=== PATIENT | male | born 1980 | race Hispanic/Latino ===

== ENCOUNTER 2020-12-24 12:48 | Emergency (ER) | payer BC, OTHER ==
--- OUTSIDE RECORDS SUMMARY | 2020-12-24 12:51 | XMS REPORT | Continuity of Care Document ---
:[address] [facility] t Address [facility] [place] [address] Care Team Providers Name Role Phone Lab, Fam Pob I Attending Clinician Unavailable Doctor Unassigned, Name Attending Clinician Unavailable Problems This patient has no known problems. Allergies, Adverse Reactions, Alerts This patient has no known allergies or adverse reactions. Medications This patient has no known medications. Procedures This patient has no known procedures. Encounters Start End Encounter Admission Attending Care Care Encounter Source Date/Time Date/Time Type Type Clinicians Facility Department ID 2020-09-27 2020-09-27 Laboratory Lab, [facility] [id number] 14:00:00 14:20:00 Only Fam Pob I Health [id number] [place] [id number] Professisela [id number] [address] 2020-09-27 2020-09-27 Orders Doctor ANTONIO [id number] 00:00:00 00:00:00 Only UnassignedRUBEN [id number] [place] [facility] [id number] Results This patient has no known results.
[2020-12-24 13:27] LABS: Absolute Lymphocytes (CBC) 1.2 K/uL (0.7-4.9); Basophils % 0.3 % (0-1.3); Lymphocytes % 14.2 % (15.3-44.8); MPV 8.1 fL (7.6-11.3); RBC Red Blood Cell Count 5.17 M/uL (4.33-5.43)
[2020-12-24 13:40] LABS: Albumin 3.7 g/dL (3.4-5.0); Bilirubin Direct 0.1 mg/dL (0-0.2); Bilirubin Total 0.6 mg/dL (0.2-1.0); Potassium 3.9 mmol/L (3.5-5.1); Protein, Total 6.4 g/dL (6.4-8.2)
[2020-12-24] MEDS ORDERED: ACETAMINOPHEN 500 MG TAB ONE (13:56)
[2020-12-24] MEDS ORDERED: NA CHLORIDE 0.9% 1,000 ML ONE (13:56)
[2020-12-24] MEDS ORDERED: D50W 25 GM/50 ML SYRINGE IV ONE (13:56)
[2020-12-24] MEDS ORDERED: ONDANSETRON 4 MG/2 ML VIAL ONE ×2 (14:05→15:38)
[2020-12-24] MEDS ORDERED: NA CHLORIDE 0.9% 250 ML ONE (16:13)
[2020-12-24] MEDS ORDERED: METOCLOPRAMIDE 10 MG/2mL INJ ONE (16:13)
[2020-12-24 17:14] LABS: Urine Blood Negative (Negative); Urine Glucose Trace (Negative); Urine Protein 1+ (Negative); Urine pH 7.5 (5.0-7.0)
[2020-12-24 17:16] LABS: Blood Gas Oxyhemoglobin 92.1 % (94-97); Blood O2 Saturation 92.7 % (92-98.5)
--- NOTE | 2020-12-24 17:44 | RAD REPORT ---
EXAM DESCRIPTION: CT - Head Brain Wo Cont - 12/24/2020 5:29 pm CLINICAL HISTORY: Headache COMPARISON: 2013 TECHNIQUE: Computed axial tomography of the head was obtained. IV contrast was not requested. All CT scans are performed using dose optimization technique as appropriate and may include automated exposure control or mA/KV adjustment according to patient size. FINDINGS: An intracranial bleed is not seen . The ventricles are normal in caliber. No extra-axial fluid collection is noted. Fluid within the sinuses/ mastoids is not seen. IMPRESSION: No acute intracranial abnormality is seen. If patient's symptoms persist MRI of the bra in would be recommended.
[2020-12-24 18:01] LABS: Barbiturates NEGATIVE (NEGATIVE); Benzodiazepines NEGATIVE (NEGATIVE); Cocaine NEGATIVE (NEGATIVE); METHAMPHETAM NEGATIVE (NEGATIVE); Methadone NEGATIVE (NEGATIVE); Opiates POSITIVE (NEGATIVE); Phencyclidine NEGATIVE (NEGATIVE); THC Cannibis NEGATIVE (NEGATIVE)
--- NOTE | 2020-12-24 18:47 | RAD REPORT ---
EXAM DESCRIPTION: CTHead angio12/24/2020 6:32 pm CLINICAL HISTORY: Headache COMPARISON: None TECHNIQUE: CT angiogram of the head was obtained. 3D MIPS reconstruction performed. All CT scans are performed using dose optimization technique as appropriate and may include automated exposure control or mA/KV adjustment according to patient size. FINDINGS: The basilar, internal carotid, anterior cerebral, middle cerebral and posterior cerebral a rteries are normal caliber. An aneurysm is not seen. A significant stenosis is not noted. IMPRESSION: Unremarkable CT angiogram head.
[2020-12-24] MEDS ORDERED: KETOROLAC 30 MG/ML INJ ONE (18:50)
[2020-12-24] MEDS ORDERED: dexAMETHasone 10 MG/ML VIAL ONE (18:50)
--- NOTE | 2020-12-24 20:25 | EDPHYS ---
Physician Documentation [facility] Name: Michael Fischer Age: 40 yrs Sex: Male : 1980 Arrival Date: 12/24/2020 Time: 12:52 Bed 2 Private MD: ED Physician HPI: 12/24 13:44 This 40 yrs old Male presents to ER via EMS with complaints of Low Blood Sugar.m 13:44 The patient or guardian reports hypoglycemia. Associated signs and symptoms: Pertinent m negatives:. 13:48 Current symptoms: In the emergency department the patient's symptoms have improved. The [facility] patient has experienced similar episodes in the past. This is a 40 year old male with a history of DM that presents to the ED with complaints of confusion, headache. Patient was administered D10 in route. Currently complains of headache. Mother states the patient did not take his BP medication. . Historical: - Allergies: 12:54 No Known Drug Allergies; sv - PMHx: 12:54 Diabetes - IDDM; sv - Immunization history:: Adult Immunizations. - Social history:: Smoking status: . ROS: 13:48 Constitutional: Negative for fever, chills, and weight loss, Cardiovascular: Negative jmm for chest pain, palpitations, and edema, Respiratory: Negative for shortness of breath, cough, wheezing, and pleuritic chest pain. 13:48 Neuro: Positive for altered mental status, headache. 13:48 All other systems are negative. Exam: 13:48 Constitutional: This is a well developed, well nourished patient who is awake, alert, jmm and in no acute distress. Head/Face: atraumatic. Eyes: EOMI, no conjunctival erythema appreciated ENT: Moist Mucus Membranes Neck: Trachea midline, Supple Chest/axilla: Normal chest wall appearance and motion. Cardiovascular: Regular rate and rhythm. No edema appreciated Respiratory: Normal respirations, no respiratory distress appreciated Abdomen/GI: Non distended, soft Back: Normal ROM Skin: General appearance color normal MS/ Extremity: Moves all extremities, no obvious deformities appreciated, no edema noted to the lower extremities Neuro: Awake and alert, normal gait Psych: Behavior is normal, Mood is normal, Patient is cooperative and pleasant Vital Signs: 12:46 BP 151 / 108; Pulse 64; Resp 19; Temp 97.4; Pulse Ox 100% ; Pain 0/10; sv 13:00 BP 124 / 63; Pulse 53; Resp 13; Pulse Ox 97% ; sv 14:00 BP 158 / 88; Pulse 50; Resp 15; Pulse Ox 96% ; sv 14:30 BP 151 / 94; Pulse 53; Resp 17; Pulse Ox 97% ; sv 15:15 BP 153 / 91; Pulse 62; Resp 19; Pulse Ox 96% ; sv 16:00 BP 151 / 83; Pulse 87; Resp 20; Pulse Ox 100% ; sv 16:45 BP 149 / 83; Pulse 77; Resp 20; Pulse Ox 98% ; sv 18:39 BP 146 / 86; Pulse 74; Resp 15; Pulse Ox 99% on R/A; hb 20:15 BP 138 / 86; Pulse 75; Resp 18; Pulse Ox 96% on R/A; mg2 MDM: 13:05 Patient medically screened. [facility] 20:24 Data reviewed: vital signs, nurses notes. Counseling: I had a detailed discussion with solange the patient and/or guardian regarding: the historical points, exam findings, and any diagnostic results supporting the discharge/admit diagnosis, lab results, radiology results, the need for outpatient follow up, to return to the emergency department if symptoms worsen or persist or if there are any questions or concerns that arise at home. Refusal of service: The patient/guardian displays adequate decision making capability and despite a detailed discussion of alternatives, benefits, risks, and consequences refuses: Admission to the hospital for further work-up and treatment, Lumbar Puncture procedure. 12/24 12:55 Order name: glucometer results - FOR PT WITH NO ID; Complete Time: 16:48 12/24 12:58 Order name: Basic Metabolic Panel; Complete Time: 13:47 [facility] 12/24 12:58 Order name: CBC with Diff; Complete Time: 13:47 [facility] 12/24 12:58 Order name: Hepatic Function; Complete Time: 13:47 [facility] 12/24 12:58 Order name: Lipase; Complete Time: 13:47 [facility] 12/24 15:35 Order name: Glucose, Ancillary Testing; Complete Time: 15:35 [facility] 12/24 17:00 Order name: Urine Drug Screen; Complete Time: 18:05 [facility] 12/24 17:00 Order name: CT Head Brain wo Cont; Complete Time: 17:45 [facility] 12/24 17:00 Order name: ABG; Complete Time: 18:11 [facility] 12/24 17:15 Order name: Urine Dipstick-Ancillary; Complete Time: 17:16 [facility] 12/24 17:48 Order name: Troponin (emerg Dept Use Only); Complete Time: 18:46 [facility] 12/24 18:11 Order name: CT Head Angio; Complete Time: 18:50 [facility] 12/24 19:11 Order name: SARS-COV-2 RT PCR; Complete Time: 19:17 [facility] 12/24 12:58 Order name: IV Saline Lock; Complete Time: 12:59 [facility] 12/24 12:58 Order name: Labs collected and sent; Complete Time: 12:59 [facility] 12/24 13:50 Order name: Diet Ada 2000 Kvng; Complete Time: 13:51 12/24 17:00 Order name: Urine Dipstick-Ancillary (obtain specimen); Complete Time: 17:41 [facility] 12/24 17:48 Order name: EKG - Nurse/Tech; Complete Time: 18:28 [facility] Administered Medications: 13:52 Drug: NS 0.9% 1000 ml Route: IV; Rate: 1 bolus; Site: left antecubital; sv 20:36 Follow up: Response: No adverse reaction; IV Status: Completed infusion wh 13:53 Not Given (Physician Discretion): D50W 50 ml IVP once; (1 amp) sv 13:53 Drug: Zofran (Ondansetron) 4 mg Route: IVP; Site: left antecubital; sv 15:24 Follow up: Response: No adverse reaction; No change in condition sv 15:24 Drug: Zofran (Ondansetron) 4 mg Route: IVP; Site: left antecubital; sv 15:59 Follow up: Response: No adverse reaction; No change in condition sv 15:59 Drug: Tylenol 1000 mg Route: PO; sv 17:07 Follow up: Response: No adverse reaction sv 15:59 Drug: Reglan (metoCLOPramide) 10 mg Route: IVP; Site: left antecubital; sv 17:42 Follow up: Response: No adverse reaction sv 18:37 Drug: Decadron - Dexamethasone 10 mg Route: IVP; Site: left antecubital; hb 20:35 Follow up: Response: No adverse reaction wh 18:37 Drug: Ketorolac 30 mg Route: IVP; Site: left antecubital; hb 20:35 Follow up: Response: No adverse reaction; Pain is decreased Disposition: 12/24/20 20:25 Discharged to Home. Impression: Headache, Hypoglycemia, unspecified. - Condition is Stable. - Discharge Instructions: General Headache Without Cause, Hypoglycemia. - Medication Reconciliation Form, Thank You Letter, Antibiotic Education, Prescription Opioid Use, Work release form form. - Follow up: Private Physician; When: 2 - 3 days; Reason: Recheck today's complaints, Continuance of care, Re-evaluation by your physician. Addendum: 12/27/2020 17:34 Co-signature as Attending Physician, Jose Luis raphael Signatures: Dispatcher [employer] [facility] Eloina Banks RN RN sv Lam, Pin, MD MD pkDarius Baca PA PA jmm Baxter, Heather, RN RN Bartolome Ledezma RN RN Manny Jimenez RN RN mg2 Corrections: (The following items were deleted from the chart) 12/24 18:24 18:01 CORONAVIRUS+MR.LAB.BRZ ordered. [facility] 20:36 20:25 12/24/2020 20:25 Discharged to Home. Impression: Headache; Hypoglycemia, wh unspecified. Condition is Stable. Forms are Medication Reconciliation Form, Thank You Letter, Antibiotic Education, Prescription Opioid Use. Follow up: Private Physician; When: 2 - 3 days; Reason: Recheck today's complaints, Continuance of care, Re-evaluation by your physician. [facility] 20:42 20:36 12/24/2020 20:25 Discharged to Home. Impression: Headache; Hypoglycemia, mg2 unspecified. Condition is Stable. Discharge Instructions: General Headache Without Cause, Hypoglycemia. Forms are Medication Reconciliation Form, Thank You Letter, Antibiotic Education, Prescription Opioid Use. Follow up: Private Physician; When: 2 - 3 days; Reason: Recheck today's complaints, Continuance of care, Re-evaluation by your physician.
--- NOTE | 2020-12-24 20:25 | ER ---
Nurse's Notes [facility] Name: Michael Fischer Age: 40 yrs Sex: Male : 1980 Arrival Date: 12/24/2020 Time: 12:52 Bed 2 Private MD: Diagnosis: Headache;Hypoglycemia, unspecified Presentation: 12/24 12:46 Chief complaint: EMS states: called out for hypoglycemia. BS-57, given 15gm D10 en sv route, BS up to 242. BP 182/133 HR-60 96% RA. Hx Type 1 DM. Coronavirus screen: Client denies travel out of the [place] in the last 14 days. At this time, the client does not indicate any symptoms associated with coronavirus-19. Ebola Screen: No symptoms or risks identified at this time. Initial Sepsis Screen: Does the patient meet any 2 criteria? No. Patient's initial sepsis screen is negative. Does the patient have a suspected source of infection? No. Patient's initial sepsis screen is negative. Risk Assessment: Do you want to hurt yourself or someone else? Patient reports no desire to harm self or others. Onset of symptoms was December 24, 2020. 12:46 Method Of Arrival: EMS: [facility] sv 12:46 Acuity: AGUILAR 3 sv Triage Assessment: 12:55 General: Appears in no apparent distress. comfortable, well developed, Behavior is sv cooperative, appropriate for age, quiet. Pain: Denies pain. Neuro: Level of Consciousness is obeys commands, lethargic, Oriented to person, place, time, situation, Moves all extremities. Respiratory: Airway is patent Respiratory effort is even, unlabored, Respiratory pattern is regular, symmetrical. Derm: Skin is pink, warm \T\ dry. Historical: - Allergies: 12:54 No Known Drug Allergies; sv - PMHx: 12:54 Diabetes - IDDM; sv - Immunization history:: Adult Immunizations. - Social history:: Smoking status: . Screenin:00 Abuse screen: Denies threats or abuse. Denies injuries from another. Nutritional hb screening: No deficits noted. Tuberculosis screening: No symptoms or risk factors identified. Fall Risk None identified. Assessment: 13:52 Reassessment: Patient appears in no apparent distress at this time. Patient and/or sv family updated on plan of care and expected duration. Pain level reassessed. Patient is alert, oriented x 3, equal unlabored respirations, skin warm/dry/pink. 13:55 Reassessment: Pt c/o nausea, lethargic, VS WNL. MICHEL Mccoy notified, Zofran administered hb as ordered. 14:00 Reassessment: Remains lethargic, vital signs stable, no apparent distress. Family at hb bedside. 15:35 Reassessment: Pt c/o nausea, remains lethargic. MICHEL Mccoy notified, Zofran administered hb as ordered. 15:59 Reassessment: Patient appears in no apparent distress at this time. Patient and/or sv family updated on plan of care and expected duration. Pain level reassessed. Patient is alert, oriented x 3, equal unlabored respirations, skin warm/dry/pink. 16:01 Reassessment: Pt c/o nausea, Darius PEARSON notified, medicated as ordered. NAD. VSS. Family hb remains at bedside. 18:38 Reassessment: Pt returned from CT, c/o headache 04/10. Medicated as ordered. Awaiting hb CTA results at this time. Family remains at bedside. 19:15 Reassessment: Patient appears in no apparent distress at this time. Patient and/or wh family updated on plan of care and expected duration. Pain level reassessed. Patient is alert, oriented x 3, equal unlabored respirations, skin warm/dry/pink. 20:15 Reassessment: Patient appears in no apparent distress at this time. Patient and/or mg2 family updated on plan of care and expected duration. Pain level reassessed. Patient is alert, oriented x 3, equal unlabored respirations, skin warm/dry/pink. Vital Signs: 12:46 BP 151 / 108; Pulse 64; Resp 19; Temp 97.4; Pulse Ox 100% ; Pain 0/10; sv 13:00 BP 124 / 63; Pulse 53; Resp 13; Pulse Ox 97% ; sv 14:00 BP 158 / 88; Pulse 50; Resp 15; Pulse Ox 96% ; sv 14:30 BP 151 / 94; Pulse 53; Resp 17; Pulse Ox 97% ; sv 15:15 BP 153 / 91; Pulse 62; Resp 19; Pulse Ox 96% ; sv 16:00 BP 151 / 83; Pulse 87; Resp 20; Pulse Ox 100% ; sv 16:45 BP 149 / 83; Pulse 77; Resp 20; Pulse Ox 98% ; sv 18:39 BP 146 / 86; Pulse 74; Resp 15; Pulse Ox 99% on R/A; hb 20:15 BP 138 / 86; Pulse 75; Resp 18; Pulse Ox 96% on R/A; mg2 ED Course: 12:50 Maintain EMS IV. Dressing intact. Good blood return noted. Site clean \T\ dry. Gauge \T\ nazario 3 site: 20-gauge in LAC. 12:50 Initial lab(s) drawn, by me, sent to lab. Patient maintains SpO2 saturation greater jp3 than 95% on room air. 12:52 Patient arrived in ED. sv 12:52 Eloina Banks RN is Primary Nurse. sv 12:53 Triage completed. sv 12:54 Arm band placed on. sv 12:55 Bed in low position. Call light in reach. Side rails up X2. Adult w/ patient. Warm jp3 blanket given. Verbal reassurance given. property assessment monitor on. Pulse ox on. NIBP on. 12:57 Darius Cummings PA is PHCP. jm 12:57 Jose Luis Motta MD is Attending Physician. jmm 17:05 Urine collected: clean catch specimen, clear, elba colored, Legal drug screen obtained jp3 per protocol. 17:41 CT Head Brain wo Cont In Process Unspecified. EDMS 17:41 Urine Drug Screen Sent. sv 18:27 EKG done, by ED staff, reviewed by Darius PEARSON COVID swab sent to lab. jp3 18:32 CT Head Angio In Process Unspecified. EDMS 19:18 Primary Nurse role handed off by Eloina Banks RN sv 19:18 Report given to Manny TURNER and Bartolome RN. sv 20:15 Manny Jimenez, JOHNNY is Primary Nurse. mg2 20:15 No provider procedures requiring assistance completed. mg2 20:35 IV discontinued, intact, bleeding controlled, No redness/swelling at site. wh 20:40 Attending Physician role handed off by Jose Luis Motta MD wh 20:40 Primary Nurse role handed off by Manny Jimenez, JOHNNY Administered Medications: 13:52 Drug: NS 0.9% 1000 ml Route: IV; Rate: 1 bolus; Site: left antecubital; sv 20:36 Follow up: Response: No adverse reaction; IV Status: Completed infusion wh 13:53 Not Given (Physician Discretion): D50W 50 ml IVP once; (1 amp) sv 13:53 Drug: Zofran (Ondansetron) 4 mg Route: IVP; Site: left antecubital; sv 15:24 Follow up: Response: No adverse reaction; No change in condition sv 15:24 Drug: Zofran (Ondansetron) 4 mg Route: IVP; Site: left antecubital; sv 15:59 Follow up: Response: No adverse reaction; No change in condition sv 15:59 Drug: Tylenol 1000 mg Route: PO; sv 17:07 Follow up: Response: No adverse reaction sv 15:59 Drug: Reglan (metoCLOPramide) 10 mg Route: IVP; Site: left antecubital; sv 17:42 Follow up: Response: No adverse reaction sv 18:37 Drug: Decadron - Dexamethasone 10 mg Route: IVP; Site: left antecubital; hb 20:35 Follow up: Response: No adverse reaction wh 18:37 Drug: Ketorolac 30 mg Route: IVP; Site: left antecubital; hb 20:35 Follow up: Response: No adverse reaction; Pain is decreased Outcome: 20:25 Discharge ordered by . [facility] 20:35 Discharged to home ambulatory, with family. 20:35 Condition: stable 20:35 Discharge instructions given to patient, family, Instructed on discharge instructions, follow up and referral plans. POC Demonstrated understanding of instructions, follow-up care, POC 20:36 Patient left the ED. 20:42 Patient left the ED. mg2 Signatures: Dispatcher [employer] Eloina Mendosa RN JOHNNY Darius Cummings PA PA jmm Baxter, Heather, RN RN Bartolome Ledezma RN RN Manny Jimenez RN RN [facility] [place] Oneal Porter jp3
[2020-12-24 21:03] VITALS: BP 138/86; O2SAT 96
--- NOTE | 2020-12-25 10:48 | EKG ---
Test Date: 2020-12-24 Test Time: 18:07:48 Telemetry Registered Nurse: ALIDA MEASUREMENT RESULTS: Intervals: Rate: 80 CT: 150 QRSD: 98 QT: 370 QTc: 426 [place]: P: 63 CT: 150 QRS: 67 T: 48 INTERPRETIVE STATEMENTS: Normal sinus rhythm with sinus arrhythmia Normal ECG Compared to ECG 11/12/2012 10:23:58 No significant changes Electronically Signed On 12-25-20 10:46:36 CDT by Mac Rolle
== END 2020-12-24 20:42 | disposition home or self-care (01) ==
LOC: ER 12:48
DX: E11.649 Type 2 diabetes mellitus with hypoglycemia without coma (principal); Z20.822 Contact with and (suspected) exposure to COVID-19
CPT/HCPCS: 96361; 93005; 85025; 80048; 36415; 82947 ×2; 80076; 80307 ×8; 81003; 84484; 83690; 70450; 70496; 82805; 96375; 96374; 99285; U0003; Q9967; J2765; J1100; J7050; J7030; J2405 ×2